=== PATIENT | female | born 1990 | race Caucasian/White ===

== ENCOUNTER → 2022-11-20 10:30 | Outpatient (BNVA) | payer MEDICAID, SELFPAY | PROVIDERS: Visit Provider Nurse Practitioner Women's Health | DX: Z12.4 Encounter for screening for malignant neoplasm of cervix (principal); Z13.220 Encounter for screening for lipoid disorders; Z13.1 Encounter for screening for diabetes mellitus; Z13.228 Encounter for screening for other metabolic disorders; Z13.0 Encounter for screening for diseases of the blood and blood-forming organs and certain disorders involving the immune mechanism | CPT/HCPCS: 80053; 80061; 83036; 85025; 87624 ==

== ENCOUNTER 2022-12-11 11:19 | Outpatient (CLI) | payer MEDICAID, SELFPAY ==
--- NOTE | 2022-12-11 12:12 | XRR_ITS ---
PROCEDURE INFORMATION: Exam: XR Chest Exam date and time: 12/11/2022 12:15 PM Age: 32 years old Clinical indication: Patient HX: Acute cough x 3 wks with phlegm yellowish/green and blood tinged TECHNIQUE: Imaging protocol: Radiologic exam of the chest. Views: 2 views. COMPARISON: No relevant prior studies available. FINDINGS: Lungs: Unremarkable. No consolidation. Pleural spaces: Unremarkable. No pleural effusion. No pneumothorax. Heart/Mediastinum: Unremarkable. No cardiomegaly. Bones/joints: Unremarkable. XR/XR chest 2V* [id number] IMPRESSION: No acute findings.
== END 2022-12-11 11:20 | disposition home or self-care (01) ==
LOC: RAD 11:21
PROVIDERS: PCP Family Medicine; Visit Provider Family Medicine
DX: R05.1 Acute cough (principal)
CPT/HCPCS: 71046

== ENCOUNTER 2023-12-03 08:48 | Outpatient (CLI) | payer MEDICAID, SELFPAY ==
--- NOTE | 2023-12-03 09:00 | MM_ITS ---
WS: [id number] DIAGNOSTIC BILATERAL DIGITAL BREAST TOMOSYNTHESIS MAMMOGRAPHY WITH CAD HISTORY: N63.12 - Unspecified lump in the right breast, bilateral palpable nodules. COMPARISON: None available. TECHNIQUE: Bilateral craniocaudad, mediolateral oblique, and mediolateral views are submitted with to mosmaribel and SM. Computer aided detection utilized. Breast composition: The breasts are heterogeneously dense, which may obscure small masses. No masses or distortion. Palpable markers are noted RIGHT breast at 12:00 and the upper outer quadrant. There i s an additional marker mid depth upper outer quadrant LEFT breast. No abnormality noted by mammograph y. Ultrasound to follow. Bilateral breast ultrasound, limited. RIGHT breast 12:00. Normal ultrasound. Additional imaging 10:00 is normal. LEFT breast 2:00. Normal. IMPRESSION: MM/[place] [id number] BI-RADS: 2-Benign FOLLOW UP: 1 Year Follow-up
--- NOTE | 2023-12-03 09:30 | US_ITS ---
WS: [id number] DIAGNOSTIC BILATERAL DIGITAL BREAST TOMOSYNTHESIS MAMMOGRAPHY WITH CAD HISTORY: N63.12 - Unspecified lump in the right breast, bilateral palpable nodules. COMPARISON: None available. TECHNIQUE: Bilateral craniocaudad, mediolateral oblique, and mediolateral views are submitted with to mosmaribel and SM. Computer aided detection utilized. Breast composition: The breasts are heterogeneously dense, which may obscure small masses. No masses or distortion. Palpable markers are noted RIGHT breast at 12:00 and the upper outer quadrant. There i s an additional marker mid depth upper outer quadrant LEFT breast. No abnormality noted by mammograph y. Ultrasound to follow. Bilateral breast ultrasound, limited. RIGHT breast 12:00. Normal ultrasound. Additional imaging 10:00 is normal. LEFT breast 2:00. Normal. IMPRESSION: US/US breast BI limited* [id number] BI-RADS: 2-Benign FOLLOW UP: 1 Year Follow-up
== END 2023-12-03 08:49 | disposition home or self-care (01) ==
LOC: RAD 08:49
PROVIDERS: PCP Family Medicine; Visit Provider Nurse Practitioner Women's Health
DX: N63.12 Unspecified lump in the right breast, upper inner quadrant (principal); R92.333 Mammographic heterogeneous density, bilateral breasts
CPT/HCPCS: 76642; 77062; G0279

== ENCOUNTER → 2023-12-11 10:15 | Outpatient (BNVA) | payer MEDICAID, SELFPAY | PROVIDERS: PCP Family Medicine; Visit Provider Nurse Practitioner Women's Health | DX: N92.5 Other specified irregular menstruation (principal) | CPT/HCPCS: 76830 ==

== ENCOUNTER → 2024-01-08 08:30 | Outpatient (BNVA) | payer MEDICAID, SELFPAY | PROVIDERS: PCP Family Medicine; Visit Provider Nurse Practitioner Women's Health | DX: N92.3 Ovulation bleeding (principal) | CPT/HCPCS: 84439; 84443 ==

== ENCOUNTER 2025-03-18 18:57 | Emergency (ER) | payer MEDICAID, SELFPAY ==
[2025-03-18 19:06] VITALS: BP 124/74; PULSE 69; RESP 14; TEMP 36.7; O2SAT 99
--- NOTE | 2025-03-18 19:53 | ED_ITS ---
HPI - Skin/Abscess/Foreign Bdy General: Chief complaint: Skin/Abscess/Foreign Body Stated complaint: R hand swelling down to elbow Time Seen by Provider: 03/18/25 19:40 History of Present Illness: 34-year-old female who [facility] with redness to her right hand that has now started streaking up her arm. She says she thought she had an insect sting and now its gotten worse. Streaking up the arm. No fevers. Related Data Home Medications ?Medication ?Instructions ?Recorded ?Confirmed cholecalciferol (vitamin D3) 50 50 mcg PO DAILY 01/08/24 mcg (2,000 unit) capsule Previous Rx's ?Medication ?Instructions ?Recorded diphenhydramine HCl 25 mg tablet 50 mg (2 x 25 mg) PO Q8H PRN 06/13/23 (Benadryl Allergy) itching #30 tabs dexamethasone 6 mg tablet 6 mg PO DAILY 5 days #5 tabs 03/18/25 sulfamethoxazole 800 2 tab PO BID 10 days #40 tab s 03/18/25 mg-trimethoprim 160 mg tablet (Bactrim DS) Allergies Allergy/AdvReac Type Severity Reaction Status Date / Time No Known Allergies Allergy Verified 03/18/25 19:12 Review of Systems Narrative: Constitutional symptoms: Negative except as documented in HPI. Skin symptoms: Negative except as documented in HPI. Eye symptoms: Negative except as documented in HPI. ENMT symptoms: Negative except as documented in HPI. Respiratory symptoms: Negative except as documented in HPI. Cardiovascular symptoms: Negative except as documented in HPI. Gastrointestinal symptoms: Negative except as documented in HPI. Genitourinary symptoms: Negative except as documented in HPI. Musculoskeletal symptoms: Negative except as documented in HPI. Neurologic symptoms: Negative except as documented in HPI. Psychiatric symptoms: Negative except as documented in HPI. Endocrine symptoms: Negative except as documented in HPI. PFSH ED PFSH: Medical History No pertinent past medical history neghx:htn,dm,thyroid,dvt/pe PCP: [facility] Surgical History H/O lumpectomy (~2009) Right breast--- Fibroadenoma H/O eye surgery (~08/2022) PR[facility] [place] teeth extracted Family History Grandmother Diabetes paternal Heart disease maternal Hypertension Grandfather Hypertension Stroke Denies family history of Colon cancer Ovarian cancer Breast cancer Uterine cancer Thyroid disease Hyperchloremia Social History Smoking and tobacco/nicotine status: never used tobacco/nicotine Physical Exam Narrative: EXAM NARRATIVE: General: Alert, no acute distress. Skin: warm and dry. Warm red raised area just below the index finger on the dorsum of the hand. There is streaking up her forearm. Head: Normocephalic Neck: Trachea midline Eye: Extraocular movements are intact. Ears, nose, mouth and throat: Oral mucosa moist Respiratory: Respirations are non-labored Musculoskeletal: Normal ROM Gastrointestinal: Abdomen does not appear distended Neurological: Alert and oriented, No focal neurological deficit observed. Psychiatric: Cooperative, appropriate mood & affect. Course Vital Signs: Vital signs: Vital Signs Temperature 98.1 F 03/18/25 19:06 Pulse Rate 69 03/18/25 19:06 Respiratory Rate 14 03/18/25 19:06 Blood Pressure 124/74 03/18/25 19:06 Pulse Oximetry 99 03/18/25 19:06 MDM - Skin/Abscess/Foreign Bdy Medicial Decision Making Assessment and plan: Cellulitis versus insect sting ?IV cefepime and Decadron in the emergency room - Discharged home - Discussed plan with patient. Answered any questions. - Evaluation and treatment of this problem were appropriate in the emergency setting. No radiology studies performed this visit Discharge Plan Discharge Patient Disposition: Home Clinical Impression: Insect sting, Cellulitis Condition: Stable Prescriptions: New dexamethasone 6 mg tablet 6 mg PO DAILY 5 Days Qty: 5 0RF sulfamethoxazole-trimethoprim [Bactrim DS] 800-160 mg tablet 2 tab PO BID 10 Days Qty: 40 0RF No Action diphenhydramine HCl [Benadryl Allergy] 25 mg tablet 50 mg PO Q8H PRN (Reason: itching) Qty: 30 0RF cholecalciferol (vitamin D3) 50 mcg (2,000 unit) capsule 50 mcg PO DAILY Discharge Orders: Discharge ED (Routine); Ordered 03/18/25 Ordered By: Sharyn Villareal Referrals: Katie Mathew DO [Primary Care Provider, [employer] OFFICER] Patient Instructions: Opioid Safety, Pain Management Activity Restrictions/Additional Instructions: Thank you for choosing [facility] for your healthcare needs today. You have been screened and evaluated and felt safe for discharge. Health conditions do change or evolve sometimes and as such it is important that you follow up with your Primary Doctor to be re checked, 3-5 days is a general good time frame for follow up. 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
[2025-03-18] MEDS: cefepime 2,000 mg SDV 2000 MG IVP (20:11)
[2025-03-18] MEDS: dexamethasone 10 mg/mL INJ IVP (20:11)
[2025-03-18 20:17] VITALS: BP 108/81; PULSE 70; RESP 16; O2SAT 99
== END 2025-03-18 20:18 | disposition home or self-care (01) ==
PROVIDERS: Emergency Provider Emergency Medicine; PCP Family Medicine
DX: L03.113 Cellulitis of right upper limb (principal); T63.481A Toxic effect of venom of other arthropod, accidental (unintentional), initial encounter
CPT/HCPCS: 96374; 96375; 99284; J0692; J1100

== ENCOUNTER → 2025-07-27 09:12 | Outpatient (BNVA) | payer MEDICAID, SELFPAY | PROVIDERS: PCP Family Medicine; Visit Provider Nurse Practitioner Women's Health | DX: N92.6 Irregular menstruation, unspecified (principal) | CPT/HCPCS: 81025 ==

== ENCOUNTER → 2025-08-19 10:11 | Outpatient (BNVA) | payer MEDICAID, SELFPAY | PROVIDERS: PCP Family Medicine; Visit Provider Nurse Practitioner Women's Health | DX: Z34.81 Encounter for supervision of other normal pregnancy, first trimester (principal) | CPT/HCPCS: 80307; 82306; 82728; 84315; 85025; 86592; 86762; 86803; 86850; 86900; 87086; 87340; 87806 ==

== ENCOUNTER → 2025-09-10 14:09 | Outpatient (BNVA) | payer MEDICAID, SELFPAY | PROVIDERS: PCP Family Medicine; Visit Provider Obstetrics & Gynecology | DX: O36.0910 Maternal care for other rhesus isoimmunization, first trimester, not applicable or unspecified (principal); Z3A.13 13 weeks gestation of pregnancy | CPT/HCPCS: 84315; 86886 ==

== ENCOUNTER → 2025-09-28 10:24 | Outpatient (BNVA) | payer MEDICAID, SELFPAY | PROVIDERS: PCP Family Medicine; Visit Provider Nurse Practitioner Women's Health | DX: Z34.82 Encounter for supervision of other normal pregnancy, second trimester (principal); Z3A.15 15 weeks gestation of pregnancy | CPT/HCPCS: 82105; 84315; 86787 ==